=== PATIENT | female | born 1950 | race Caucasian/White ===

== ENCOUNTER 2019-10-30 12:29 | Day surgery (SDC) | payer OTHER, MEDICARE ==
--- NOTE | 2019-10-23 13:31 | HP ---
Admitting History and Physical - Primary Care Physician PCP: Messi Agarwal - Admission Chief Complaint: right breast cancer History of Present Illness: Patient is a 68 yo female who was noted to have suspicious masses right breast at 9 and 10. Patient underwent a bx on 08/31 which was c/w invasive lobular cancer at 9 (3 cm FN) and 10 (7 and 8 cm FN). MRI showed additional areas of suspicious enhancement bilaterally. The left 12 oclock area of enhancement was c/w PASH (09/28). The patient has opted to go forward with right breast mastectomy, snbx, poss andx with lympho and implant reconstruction. History Source: Patient Limitations to Obtaining History: No Limitations - Past Medical History Cardiovascular: Yes: HTN Heme/Onc: Yes: Other (Factor V Leiden def.) Home Medications - Allergies Allergies/Adverse Reactions: Allergies Allergy/AdvReac Type Severity Reaction Status Date / Time No Known Allergies Allergy Verified 10/23/19 13:33 - Home Medications Home Medications (free text): losartan. Hctz Family Medical History Family Hx Cancer: Mother (breast cancer dxed 80s) Review of Systems - Review of Systems Constitutional: reports: No Symptoms Cardiovascular: reports: No Symptoms Respiratory: reports: No Symptoms Physical Examination Constitutional: Yes: Well Nourished, Calm (Ptotic ful C-cup breasts with some bruising noted in the lateral aspect of the right breast . Scarring changes noted in the right breast at site of bx. No adenopathy noted bilaterally) Problem List - Problems (1) Breast cancer, right Code(s): C50.911 - MALIGNANT NEOPLASM OF UNSP SITE OF RIGHT FEMALE BREAST Qualifiers: Breast location: overlapping sites of breast Estrogen receptor status: positive Patient sex: female Qualified Code(s): C50.811 - Malignant neoplasm of overlapping sites of right female breast; Z17.0 - Estrogen receptor positive status [ER+] Assessment/Plan Plan: right mastectomy, snbx, poss andx, lympho and implant reconstruction
[2019-10-27 15:10] VITALS: BMI 24.1
--- OUTSIDE RECORDS SUMMARY | 2019-10-30 09:28 | XMS ---
:1950 [facility] Providers Name Role Phone Radiology, Referral Unavailable Unavailable Nicolás Golden Unavailable Unavailable Kale, J Unavailable Unavailable Yong, L Unavailable Unavailable Menell, H Unavailable Unavailable Yuval, A Unavailable Unavailable Madonna, H Unavailable Unavailable Madonna, H Unavailable Unavailable Madonna, H Unavailable Unavailable Madonna, H Unavailable Unavailable Madonna, H Unavailable Unavailable Madonna, H Unavailable Unavailable Madonna, H Unavailable Unavailable Madonna, H Unavailable Unavailable Madonna, H Unavailable Unavailable Madonna, H Unavailable Unavailable Madonna, H Unavailable Unavailable Madonna, H Unavailable Unavailable Madonna, H Unavailable Unavailable Madonna, H Unavailable Unavailable Madonna, H Unavailable Unavailable Madonna, H Unavailable Unavailable Madonna, H Unavailable Unavailable Rogalski, R Unavailable Unavailable Martines, E Unavailable Unavailable Clarick, J Unavailable Unavailable Saniya Taqueria Unavailable Unavailable Jhanwar, S Unavailable Unavailable Mizrachi Jonisch Unavailable Unavailable Olmstead, Ashlee Unavailable Unavailable Freedman, C Unavailable Unavailable Swan, E Unavailable Unavailable Re-disclosure Warning The records that you are about to access may contain information from federally- assisted alcohol or drug abuse programs. If such information is present, then the following federally mandated warning applies: This information has been disclosed to you from records protected by federal confidentiality rules (42 CFR part 2). The federal rules prohibit you from making any further disclosure of this information unless further disclosure is expressly permitted by the written consent of the person to whom it pertains or as otherwise permitted by 42 CFR part 2. A general authorization for the release of medical or other information is NOT sufficient for this purpose. The Federal rules restrict any use of the information to criminally investigate or prosecute any alcohol or drug abuse patient.The records that you are about to access may contain highly sensitive health information, the redisclosure of which is protected by Article 27-F of the [facility] Public Health law. If you continue you may haveaccess to information: Regarding HIV / AIDS; Provided by facilities licensed or operated by the [facility] Office of Mental Health; or Provided by the [facility] Office for People With Developmental Disabilities. If such information is present, then the following [facility] mandated warning applies: This information has been disclosed to you from confidential records which are protected by state law. State law prohibits you from making any further disclosure of this information without the specific written consent of the person to whom it pertains, or as otherwise permitted by law. Any unauthorized further disclosure in violation of state law may result in a fine or mcfp sentence or both. A general authorization for the release of medical or other information is NOT sufficient authorization for further disclosure. Allergies and Adverse Reactions Type Description Substance Reaction Status Data Source(s ) 3 No Known Allergies Clindamycin 150 MG Oral NEXTGEN ([facility] Tablet [Clintabs] [facility]) Encounters Encounter Providers Location Date Indications Data Source(s ) Outpatient Attender: Edward 10/28/2019 NEXTGEN ( [facility]onna 08:37:00 AM [facility]) Outpatient Attender: Edward 10/23/2019 NEXTGEN ( [facility] BhattReferrer: Edward 04:45:00 PM Med ica - [facility]) Outpatient Attender: Edward 10/22/2019 NEXTGEN ( [facility] Madonna 11:03:00 AM [facility]) Outpatient Attender: Referral 10/20/2019 NEXTGE N ([facility] 12:32:00 PM [facility]) Outpatient Attender: Nicolás 10/20/2019 NEXTGEN ([facility] KeatingReferrer: 12:29:00 PM [facility]) Outpatient Attender: Edward 10/20/2019 NEXTGEN ( [facility] Madonna 12:18:00 PM [facility]) Outpatient Attender: Rosario 10/14/2019 MARTHA N ([facility] Rogalski 03:09:00 PM Medical [facility] ) Outpatient Attender: Cathi 10/06/2019 NEXTGEN ([facility] GuptaReferrer: 11:40:00 AM Medical [facility] Cathi [place] ED Medical Gr[facility] p ) Outpatient Attender: Yaneli Horowitzi 09/29/2019 NEXT GEN ([facility] Taqueria 08:20:00 AM Medical [facility]) Outpatient Attender: Referral 09/26/2019 NEXTGE N ([facility] 02:56:00 PM Medical [facility]) Outpatient Attender: Referral 09/25/2019 NEXTGE N ([facility] 04:20:00 PM Medical [facility]) Outpatient Attender: Referral 09/25/2019 NEXTGE N ([facility] 03:44:00 PM Medical [facility]) Outpatient Attender: Marlyn 09/12/2019 NEXTGEN ([facility] FreedmanReferrer: 01:22:00 PM Medica l [facility] ) Outpatient Attender: 09/08/2019 NEXTGEN ([facility] Jhanwar 01:17:00 PM Medical [facility]) Outpatient Attender: Marlyn 09/04/2019 NEXTGEN ([facility] MartinmanReferrer: 02:30:00 PM Medica l [facility] Dewayne Henley [facility] Medical Delmy up ) Outpatient Attender: 09/01/2019 NEXTGEN ([facility] Jhanwar 11:41:00 AM Medical [facility] ) Outpatient Attender: Edward 09/01/2019 NEXTGEN ( [facility] Madonna 08:31:00 AM Medical [facility]) Outpatient Attender: Livier 09/01/2019 NEXTGE N ([facility] ChuReferrer: Thu 12:00:00 AM Medi [place] [facility] Jhanwar [facility]) Outpatient Attender: Edward 08/27/2019 NEXTGEN ( [facility] 05:33:00 PM [facility] [place] [facility]) Outpatient Attender: Arlyn 08/26/2019 NEXTGEN ([facility] Mizrachi 01:50:00 PM [facility] [place] JonischReferrer: [facility]) [facility] Outpatient Attender: Edward 08/22/2019 NEXTGEN ( [facility] [place] 08:29:00 AM [facility] [place] [facility]) Outpatient Attender: Cathi 07/22/2019 NEXTGEN ([facility] [place] 04:07:00 PM [facility] [place] [facility]) Outpatient Attender: Edward 07/22/2019 NEXTGEN ( [facility] Madonna 03:53:00 PM [facility] [place] [facility]) Outpatient Attender: Edward 07/04/2019 NEXTGEN ( [facility] Madonna 09:14:00 AM [facility] [place] [facility]) Outpatient Attender: Edward 07/01/2019 NEXTGEN ( [facility] BhattReferrer: Edward 12:15:00 PM Med ical - [place]) Outpatient Attender: Cathi 05/21/2019 NEXTGEN ([facility] [place] 11:57:00 AM [facility] [place] [facility]) Outpatient Attender: Cathi 03/05/2019 NEXTGEN ([facility] GuptaReferrer: 03:00:00 PM Medical [place] Cathi [place] EST [facility]) Outpatient Attender: Felice 02/24/2019 NEXTGEN ([facility] WaldReferrer: Deward 12:00:00 AM Med[place] Mad[facility]) Outpatient Attender: Edward 02/21/2019 NEXTGEN ( [facility] [place]onna 03:50:00 PM [facility] [place] [facility]) Outpatient Attender: Ana 02/21/2019 NEXTGEN ([facility] SantiagoReferrer: 12:00:00 AM Medica l - [place] Edward [facility]) Outpatient Attender: Edward 02/18/2019 NEXTGEN ( [facility] [place] 11:28:00 AM [facility] [place] [facility]) Outpatient Attender: Edward 02/14/2019 NEXTGEN ( [facility] [place] 07:04:00 PM [facility] [place] [facility]) Outpatient Attender: Cathi 02/10/2019 NEXTGEN ([facility] [place] 04:02:00 PM [facility] [place] [facility]) Outpatient Attender: Cathi 09/20/2018 NEXTGEN ([facility] [place] 08:55:00 AM [facility] [place] [facility]) Outpatient Attender: Megha 09/19/2018 NEXTGEN ( [facility] Martines 04:43:00 PM [facility] [place] [facility]) Outpatient Attender: Kenya 09/19/2018 NEXTGEN ([facility] ClarickReferrer: 04:30:00 PM Medical [place] Kenya Clarick [facility]) Outpatient Attender: Cathi 08/23/2018 NEXTGEN ([facility] GuptaReferrer: 05:00:00 PM Medical [place] Cathi [place] [facility]) Outpatient Attender: Cathi 08/21/2018 NEXTGEN ([facility] [place] 12:48:00 PM [facility] [place] [facility]) Outpatient Attender: Edward 08/20/2018 NEXTGEN ( [facility] Madonna 11:16:00 AM [facility] [place] [facility]) Outpatient Attender: Cathi 08/16/2018 NEXTGEN ([facility] GuptaReferrer: 04:00:00 PM Medical [place] Cathi [place] [facility]) Outpatient Attender: Edward 07/02/2018 NEXTGEN ( [facility] BhattReferrer: Edward 03:30:00 PM Med ical - [place] [facility]) Outpatient Attender: Megha 06/24/2018 NEXTGEN ( [facility] PaganReferrer: Edward 02:00:00 PM Med ical - [place] [facility]) Outpatient Attender: Edward 06/17/2018 NEXTGEN ( [facility] [place]onna 11:28:00 AM [facility] [place] [facility]) Outpatient Attender: Edward 06/13/2018 NEXTGEN ( [facility] Madonna 09:45:00 AM Medical [facility] ) Outpatient Attender: Edward 06/04/2018 NEXTGEN ( [facility] Madonna 10:39:00 AM Medical [facility] ) Outpatient Attender: Edward 06/03/2018 NEXTGEN ( [facility] Madonna 10:42:00 AM Medical [facility] ) Outpatient 05/30/2018 NEXTGEN ([facility] 11:02:00 AM Medical - [facility] ) Outpatient Attender: Megha 05/30/2018 NEXTGEN ( [facility] Martines 11:02:00 AM [facility]) Outpatient Attender: Margarita 05/28/2018 NEXTGE N ([facility] MenellReferrer: 12:00:00 AM [facility] ) Outpatient Attender: Edward 04/25/2018 NEXTGEN ( [facility] Madonna 04:51:00 PM Medical - [facility] ) Outpatient Attender: Edward 04/12/2018 NEXTGEN ( [facility] Madonna 09:55:00 AM Medical [facility] ) Medications Medication Brand Start Product Dose Route Administrative Pharmacy [facility] Indications Reaction Description Data Name Date Form Instructions Instructions Source(s) coenzyme COQ-10 RP NEXTGEN Q10 30 MG ([facility] Oral Medical - Capsule 30 [place] mg 30 mg Medical Group ) This may be an active medication. No end date is available. Start date above may not reflect actual date the medication was s tarted. 1,300 mg-845 mg-117 mg-117 mg RP NEXTGEN ([facility] Medical - [place] 1,300 mg-845 mg-117 mg-117 mg [facility] ) This may be an active medication. No end date is available. Start date above may not reflect actual date the medication was s tarted. Vitamin E 100 UNT Oral VITAMIN E RP NEXTGEN ([facility] Medical - Capsule 100 unit 100 unit [facility] ) This may be an active medication. No end date is available. Start date above may not reflect actual date the medication was s tarted. 600 mg 600 mg RP NEXTGE N ([facility]) This may be an active medication. No end date is available. Start date above may not reflect actual date the medication was s tarted. 200 mcg 200 mcg RP NEXT GEN ([facility]) This may be an active medication. No end date is available. Start date above may not reflect actual date the medication was s tarted. 100 mcg (4,000 unit) 3400 mg daily RP NEXTGEN ([facility] Medical 100 mcg (4,000 unit) - [facility]) This may be an active medication. No end date is available. Start date above may not reflect actual date the medication was s tarted. 200 mg 200 mg 2 tabs daily RP NEXTGEN ([facility]) This may be an active medication. No end date is available. Start date above may not reflect actual date the medication was s tarted. Garlic preparation 300 MG ODORLESS GARLIC RP NEXTGEN ([facility] Oral Capsule 300 mg 300 Medical [facility]) This may be an active medication. No end date is available. Start date above may not reflect actual date the medication was s tarted. "" "" RP NEXTGEN ([facility] - [facility]) This may be an active medication. No end date is available. Start date above may not reflect actual date the medication was s tarted. "" "" take 1 capsule by oral route RP NEXTGEN ([facility] - every day [facility]) This may be an active medication. No end date is available. Start date above may not reflect actual date the medication was s tarted. 500 mg calcium (1,250 2000 mg daily RP NEXTGEN ([facility] mg) 500 mg calcium - [facility] (1,250 mg) ) This may be an active medication. No end date is available. Start date above may not reflect actual date the medication was s tarted. Alendronic ALENDRONATE 10/06/2019 take 1 tablet RP NEXTGEN acid 70 MG SODIUM 12:00:00 AM by oral route ([facility] 70 EDT every week Medical - [place] mg 70 mg in the [place] Med ical morning, at Group ) least 30 min before first food, beverage, or medication of day This may be an active medication. No end date is available. Losartan LOSARTAN 07/22/2019 take 1 RP NEXTGEN Potassium 50 POTASSIUM 12:00:00 AM EDT tablet by ([facility] MG Oral Tablet oral route Medical - [place] 50 mg 50 mg every day s [place] Medical Group ) This may be an active medication. No end date is available. Hydrochlorothiazide HYDROCHLOROTHIAZIDE 07/22/2019 take 1 RP NEXTGEN 12.5 MG Oral Tablet 12:00:00 AM tablet ([facility] 12.5 mg 12.5 mg EDT by oral M edical - [facility] ) This may be an active medication. No end date is available. Alendronic ALENDRONATE 07/22/2019 take 1 tablet RP NEXTGEN acid 70 MG SODIUM 12:00:00 AM by oral route ([facility] Oral Tablet 70 EDT every week Medical - [place] mg 70 mg in the [place] Med ical morning, at Group ) least 30 min before first food, beverage, or medication of day This may be an active medication. No end date is available. Alendronic ALENDRONATE 03/05/2019 take 1 tablet RP NEXTGEN acid 70 MG SODIUM 12:00:00 AM by oral route ([facility] Oral Tablet 70 EST every week Medical - [place] mg 70 mg in the [place] Med ical morning, at Group ) least 30 min before first food, beverage, or medication of day This may be an active medication. No end date is available. Hydrochlorothiazide HYDROCHLOROTHIAZIDE 02/18/2019 take 1 RP NEXTGEN 12.5 MG Oral Tablet 12:00:00 AM tablet ([facility] 12.5 mg 12.5 mg EST by oral M edical - route [facility] day Group ) This may be an active medication. No end date is available. Losartan LOSARTAN 02/18/2019 take 1 RP NEXTGEN Potassium 50 POTASSIUM 12:00:00 AM EST tablet by ([facility] MG Oral Tablet oral route Medical - [place] 50 mg 50 mg every day s [place] [facility] Group ) This may be an active medication. No end date is available. Insurance Providers Payer name Policy type Policy ID Covered Covered constitution party's Policy P sri / Coverage constitution party ID relationship to [place] Inf ormation type boothe MDCR Medicare [id number] 1 [id number] Part B Par Providers [facility] [id number] [id number] SP [id number] CARE OPTIONS MEDICARE [id number] SP [id number] [facility] [id number] SP [id number] CARE OPTIONS MEDICARE [id number] SP [id number] G63 [facility] [place] [id number] 1 [id number] Part B Par Providers Problems, Conditions, and Diagnoses Code Display Name Description Problem Type Effective Data Dates Source(s) I10 Essential Essential Diagnosis 10/23/2019 NEXTGEN (primary) (primary) 04:45:00 PM ([facility] hypertension hypertension EDT [facility]) 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 XTGEN C resistance mutation, 04:45:00 PM ([facility] heterozygous EDT [facility]) C50.911 Malignant neoplasm Malignant neoplasm Diagnosis 0 NEXTGEN of unspecified of right female 04:45:00 PM ([facility] site of right breast, EDT Medical - t female breast unspecified [facility] estrogen receptor Group P C) status, unspecified site of breast T88.8xxA Other specified Complication med Diagnosis 10/20/2019 NEX TGEN complications of care NEC/NOS 12:32:00 PM ([facility] surgical and EDT Medical [facility] medical care, not [place] M edical elsewhere Group PC) classified, initial encounter Z01.818 Encounter for Encounter for Diagnosis 10/20/2019 NEXTGEN other other 12:29:00 PM ([facility]ural preprocedural EDT Medical [facility] examination examination [facility]) M81.0 Age-related Age-related Diagnosis 10/06/2019 NEXTGEN osteoporosis osteoporosis w/o 11:40:00 AM ([facility] without current current EDT Medical [facility] pathological pathological [facility] fracture fracture Group PC) D48.62 Neoplasm of Neoplasm of Diagnosis 09/29/2019 NEXTGEN uncertain behavior uncertain behavior 08:20:00 AM ([facility] of left breast of left breast EDT Medica l - [facility]) N63.0 Unspecified lump Breast mass Diagnosis 09/25/2019 NEXTGEN in unspecified 04:20:00 PM ([facility] breast [facility]) R92.8 Other abnormal and Oth abn and Diagnosis 09/12/2019 NEXTG EN inconclusive inconclusive 01:22:00 PM ([facility] findings on findings on dx EDT Medical [facility] diagnostic imaging imaging of breast [facility] of breast Group PC) C50.411 Malignant neoplasm Malig neoplm of Diagnosis 09/12/2019 N EXTGEN of upper-outer upper-outer 01:22:00 PM ([facility] quadrant of right quadrant of right EDT Medical - [place] female breast female breast [facility] dical Group PC) L82.1 Other seborrheic Seborrheic Diagnosis 08/26/2019 NEXTGEN keratosis keratosis 01:50:00 PM ([facility]) D22.5 Melanocytic nevi Melanocytic nevi Diagnosis 08/26/2019 NE XTGEN of trunk of trunk 01:50:00 PM ([facility]) Z12.31 Encounter for Encounter for Diagnosis 08/22/2019 NEXTGEN screening screening 08:29:00 AM ([facility] mammogram for mammogram for EDT Medical [facility] malignant neoplasm malignant neoplasm [facility] of breast of breast Group PC) Z12.11 Encounter for Screen for colon Diagnosis 07/01/2019 NEXTG EN screening for cancer 12:15:00 PM ([facility] malignant neoplasm EDT Medica l - [place] of colon [facility]) M81.8 Other osteoporosis Other osteoporosis Diagnosis 0 NEXTGEN without current without current 12:15:00 PM ([facility] pathological pathological EDT [facility] fracture fracture [facility]) Z00.00 Encounter for Routine general Diagnosis 07/01/2019 NEXTGE N general adult medical 12:15:00 PM ([facility] medical examination at a EDT Medical [facility] examination health care [place] Medica l without abnormal facility Group PC ) findings N64.9 Disorder of Disorder of Diagnosis 02/24/2019 NEXTGEN breast, breast, 12:00:00 AM ([facility] unspecified unspecified [facility]) 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 02:00:00 PM ([facility] other clotting EDT [facility] factors [facility]) E55.9 Vitamin D Vitamin D Diagnosis 06/24/2018 NEXTGEN deficiency, deficiency 02:00:00 PM ([facility] unspecified T [facility]) R92.2 Inconclusive Dense breast Diagnosis 06/24/2018 NEXTGEN mammogram tissue 02:00:00 PM ([facility]) Z13.820 Encounter for Encounter for Diagnosis 05/28/2018 NEXTGEN screening for screening for 12:00:00 AM ([facility] osteoporosis osteoporosis [facility]) Surgeries/Procedures Procedure Description Date Indications Data Source(s) OFFICE/OUTPATIENT VISIT OFFICE/OUTPATIENT VISIT 10/23/2019 NEXTGEN EST EST 12:00:00 ([facility] AM [facility]) ELECTROCARDIOGRAM ELECTROCARDIOGRAM 10/20/2019 NEXTG EN COMPLETE COMPLETE 12:00:00 ([facility] AM [facility]) OFFICE/OUTPATIENT VISIT OFFICE/OUTPATIENT VISIT 10/06/2019 NEXTGEN EST EST 12:00:00 ([facility]) PHYSICIAN TELEPHONE PHONE E/M PHYS/QHP -09/12/2019 NEXTGEN EVALUATION 21-30 MIN MIN 12:00:00 ([facility] AM [facility]) Annual wellness visit, Ppps, subseq visit 07/01/2019 NEXTGEN includes a personalized 12:00:00 ([facility] prevention plan of [facility] service (pps), [facility] visit Group ) ULTRASOUND BREAST ULTRASOUND BREAST 02/24/2019 NEXTG EN LIMITED LIMITED 12:00:00 ([facility] AM [facility]) BREAST TOMOSYNTHESIS UNI BREAST TOMOSYNTHESIS UNI 02/21/2019 NEXTGEN 12:00:00 ([facility]) DX MAMMO INCL CAD UNI DX MAMMO INCL CAD UNI 02/21/2019 NEXTGEN 12:00:00 ([facility]) HZV VACC RECOMBINANT IM HZV VACC RECOMBINANT IM 09/19/2018 NEXTGEN 12:00:00 ([facility]) IMMUNIZATION ADMIN IMMUNIZATION ADMIN 09/19/2018 NEX TGEN 12:00:00 ([facility]) OFFICE/OUTPATIENT VISIT OFFICE/OUTPATIENT VISIT 08/16/2018 NEXTGEN NEW NEW 12:00:00 ([facility]) Results ID Date Data Source [id number] 10/27/2019 01:17:00 PM EDT [facility] Name Value Range Interpretation Description Data Sup porting Code Source(s) Document(s ) SARS [facility] coronavirus 2 RNA This lab was ordered by CELESTINA gutierrez [facility] and reported by [facility] Procedure
[~2019-10-30 12:29] MED LIST: ACETAMINOPHEN INJECTION 100 ML IVPB ONE; BUPIVACAINE HCL/PF 0.5% (5 MG/ML) 30 ML VIAL IJ ONE; BUPIVACAINE LIPOSOME/PF (EXPAREL) 266 MG/20 ML VIAL ONE; DEXAMETHASONE SOD PHOSPHATE 4 MG/1 ML VIAL ONE; HEPARIN NA (PORCINE) 5,000 UNITS/ML 1ML VIAL ONE; HYDROmorphone HCL CARPU-JECT 1 MG/1 ML DISP.SYRIN IVPUSH PRN; LIDOCAINE HCL/PF 2% SDV 5ML VIAL ONE; MIDAZOLAM HCL 2 MG/2 ML SINGLE DOSE VIAL ONE; ONDANSETRON 4 MG/2 ML VIAL IVPUSH PRN; ONDANSETRON 4 MG/2 ML VIAL ONE; PROPOFOL 20 ML ONE; ROCURONIUM BROMIDE 50 MG/5 ML SYRINGE ONE; SODIUM CHLORIDE 0.9% P/F 10 ML VIAL IJ ONE; ZOLPIDEM TARTRATE 5 MG TABLET PO PRN; ceFAZolin SODIUM 1 GM VIAL ONE; oxyCODONE HCL 5 MG TABLET PO PRN
[2019-10-30] MEDS ORDERED: DEXTROSE 5%-0.45% SALINE 1,000 ML IV SCH (12:30)
[2019-10-30] MEDS ORDERED: GLYCOPYRROLATE 0.2 MG/1 ML VIAL ONE (12:47)
[2019-10-30] MEDS ORDERED: NEOSTIGMINE METHYLSULFATE 0.5 MG/ML - 10 ML MDV ONE (12:47)
[2019-10-30] MEDS ORDERED: PROPOFOL 20 ML ONE (12:59)
[2019-10-30] MEDS ORDERED: MIDAZOLAM HCL 2 MG/2 ML SINGLE DOSE VIAL ONE (13:01)
--- OUTSIDE RECORDS SUMMARY | 2019-10-30 15:45 | XMS ---
:1950 Author Organization [facility] Care Team Providers Name Role Phone Radiology, Referral Unavailable Unavailable Nicolás Golden Unavailable Unavailable Kale, J Unavailable Unavailable Yong, L Unavailable Unavailable Menell, H Unavailable Unavailable Uyval, A Unavailable Unavailable Madonna, H Unavailable Unavailable [...] is protected by Article 27-F of the [facility] Public Health law. If you continue you may haveaccess to information: Regarding HIV / AIDS; Provided by facilities licensed or operated by the [facility] Office of Mental Health; or Provided by the [facility] Office for People With Developmental Disabilities. If such information is present, then the following [facility] mandated warning applies: This information has [...] law may result in a fine or intermediate sentence or both. A general authorization for the release of medical or other information is NOT sufficient authorization for further disclosure. Allergies and Adverse Reactions Type Description Substance Reaction Status Data Source(s ) 3 No Known Allergies Clindamycin 150 MG Oral NEXTGEN ([facility] Tablet [Clintabs] [facility]) Encounters Encounter Providers Location Date Indications Data Source(s ) Outpatient Attender: Edward 10/28/2019 NEXTGEN ( [facility] [place]onna 08:37:00 AM [facility]) Outpatient Attender: Edward 10/23/2019 NEXTGEN ( [facility] BhattReferrer: Edward [facility]45[facility] Out[facility] Attender: Edward 10/22/2019 NEXTGEN ( [facility] Madonna 11:03:00 AM [facility]) Outpatient Attender: Referral 10/20/2019 SANTOGE N ([facility] 12:32:00 PM [facility]) Outpatient Attender: Nicolás 10/20/2019 NEXTGEN ([facility] KeatingReferrer: 12:29:00 PM [facility]) Outpatient Attender: Edward 10/20/2019 NEXTGEN ( [facility] Madonna 12:18:00 PM [facility]) Outpatient Attender: Rosario 10/14/2019 NEXTGE N ([facility] Rogalski 03:09:00 PM [facility] Medical [facility]) Outpatient Attender: Cathi 10/06/2019 NEXTGEN ([facility] GuptaReferrer: 11:40:00 AM Medical [facility] [place] [facility] Outpatient Attender: Yaneli Saniya 09/29/2019 NEXT GEN ([facility] Taqueria 08:20:00 AM Medical [facility] Medical [facility]) Outpatient Attender: Referral 09/26/2019 NEXTGE N ([facility] 02:56:00 PM [facility]) Outpatient Attender: Referral 09/25/2019 NEXTGE N ([facility] 04:20:00 PM [facility] Medical [facility]) Outpatient Attender: Referral 09/25/2019 NEXTGE N ([facility] 03:44:00 PM [facility] Medical [facility]) Outpatient Attender: Marlyn 09/12/2019 NEXTGEN ([facility] FreedmanReferrer: 01:22:00 PM [facility] Ardon [facility] Medical Delmy up ) Outpatient Attender: 09/08/2019 NEXTGEN ([facility] Jhanwar 01:17:00 PM [facility] Medical [facility]) Outpatient Attender: Marlyn 09/04/2019 NEXTGEN ([facility] FreedmanReferrer: 02:30:00 PM [facility] Henley [facility] Medical Delmy up ) Outpatient Attender: 09/01/2019 NEXTGEN ([facility] Jhanwar 11:41:00 AM Medical [facility] Medical [facility]) Outpatient Attender: Edward 09/01/2019 NEXTGEN ( [facility] Madonna 08:31:00 AM Medical [facility] Medical [facility]) Outpatient Attender: Livier 09/01/2019 NEXTGE N ([facility] ChuReferrer: Htu 12:00:00 AM Med[facility] Medical Group ) Outpatient Attender: Edward 08/27/2019 NEXTGEN ( [facility] [place] 05:33:00 PM [facility] [place] [facility] Outpatient Attender: Arlyn 08/26/2019 NEXTGEN ([facility] Mizrachi 01:50:00 PM [facility] [place] [facility] Jonisch[facility]errer: EDT [facility] ) [facility] Outpatient Attender: Edward 08/22/2019 NEXTGEN ( [facility] [place] 08:29:00 AM [facility] [place] [facility] ) Outpatient Attender: Cathi 07/22/2019 NEXTGEN ([facility] [place] 04:07:00 PM Medical [facility] Group ) Outpatient Attender: Edward 07/22/2019 NEXTGEN ( [facility] Madonna 03:53:00 PM Medical [facility] Medical Group ) Outpatient Attender: Edward 07/04/2019 NEXTGEN ( [facility] [place]onna 09:14:00 AM Medical [facility] Group ) Outpatient Attender: Edward 07/01/2019 NEXTGEN ( [facility] BhattReferrer: Edward 12:15:00 PM [facility] Mad[facility] Medical Group ) Outpatient Attender: Cathi 05/21/2019 NEXTGEN ([facility] [place] 11:57:00 AM [facility] ) Outpatient Attender: Cathi 03/05/2019 NEXTGEN ([facility] GuptaReferrer: 03:00:00 PM Medical [facility] Cathi [place] EST Medical Gro p ) Outpatient Attender: Felice 02/24/2019 NEXTGEN ([facility] WaldReferrer: Edward 12:00:00 AM Medi [place] [facility]) Outpatient Attender: Edward 02/21/2019 NEXTGEN ( [facility] [place] 03:50:00 PM [facility] [place] [facility] ) Outpatient Attender: Ana 02/21/2019 NEXTGEN ([facility] SantiagoReferrer: 12:00:00 AM Medica l [facility] Edward Madonna EST [facility]) Outpatient Attender: Edward 02/18/2019 NEXTGEN ( [facility] [place] 11:28:00 AM [place] EST Medical Group [...] 04:00:00 PM [place] Cathi Ol[place] EDT Medical Grou p PC) Outpatient Attender: Edward 07/02/2018 NEXTGEN ( [facility] BhattReferrer: Edward 03:30:00 PM Med ical [place] [facility]) Outpatient Attender: Megha 06/24/2018 NEXTGEN ( [facility] PaganReferrer: Edward 02:00:00 PM Med [place] [facility]) Outpatient Attender: Edward 06/17/2018 NEXTGEN ( [facility] [place] 11:28:00 AM Medical [facility] ED Medical Group ) Outpatient Attender: Edward 06/13/2018 NEXTGEN ( [facility] [place] 09:45:00 AM [facility] ) Outpatient Attender: Edward 06/04/2018 NEXTGEN ( [facility] [place] 10:39:00 AM Medical [facility] Group ) Outpatient Attender: Edward 06/03/2018 NEXTGEN ( [facility] [place] 10:42:00 AM Medical - [facility] Medical Group ) Outpatient 05/30/2018 NEXTGEN (Carem ount 11:02:00 AM Medical [facility] Medical [facility]) Outpatient Attender: Megha 05/30/2018 NEXTGEN ( [facility] Martines 11:02:00 AM Medical [facility] Medical Group ) Outpatient Attender: Margarita 05/28/2018 MARTHA N ([facility] MenellReferrer: 12:00:00 AM Medical [facility] ) Outpatient Attender: Edward 04/25/2018 NEXTGEN ( [facility] Madonna 04:51:00 PM Medical - [facility] ) Outpatient Attender: Edward 04/12/2018 NEXTGEN ( [facility] [place]onna 09:55:00 AM Medical [facility] Medical Group ) Medications Medication Brand Start Product Dose Route Administrative Pharmacy at Indications Reaction Description Data Name Date Form [...] - Mt 1,300 mg-845 mg-117 mg-117 mg [facility] ) This may be an active medication. No end date is available. Start date above may not reflect actual date the medication was s tarted. Vitamin E 100 UNT Oral VITAMIN E RP NEXTGEN ([facility] - Capsule 100 unit 100 unit [facility]) This may be an active medication. No end date is available. Start date above may not reflect actual date the medication was s tarted. 600 mg 600 mg RP NEXTGE N ([facility] Medical [facility]) This may be an active medication. No end date is available. Start date above may not reflect actual date the medication was s tarted. 200 mcg 200 mcg RP NEXT GEN [facility]) This may be an active medication. No end date is available. Start date above may not reflect actual date the medication was s tarted. 100 mcg (4,000 unit) 3400 mg daily RP NEXTGEN ([facility] 100 mcg (4,000 unit) - [facility]) This may be an active medication. No end date is available. Start date above may not reflect actual date the medication was s tarted. 200 mg 200 mg 2 tabs daily RP NEXTGEN ([facility]) This may be an active medication. No end date is available. Start date above may not reflect actual date the medication was s tarted. Garlic preparation 300 MG ODORLESS GARLIC RP NEXTGEN ([facility] Oral Capsule 300 mg 300 Medical - [facility]) This may be an active medication. No end date is available. Start date above may not reflect actual date the medication was s tarted. "" "" RP NEXTGEN ([facility] Medical - [facility]) This may be an active medication. No end date is available. Start date above may not reflect actual date the medication was s tarted. "" "" take 1 capsule by oral route RP NEXTGEN ([facility] - every day [facility]) This may be an active medication. No end date is available. Start date above may not reflect actual date the medication was s tarted. 500 mg calcium (1,250 2000 mg daily RP NEXTGEN ([facility] mg) 500 [address] - [facility] (1,250 mg) ) This may be an active medication. No end date is available. Start date above may not reflect actual date the medication was s tarted. Alendronic ALENDRONATE 10/06/2019 take 1 tablet RP NEXTGEN acid 70 MG SODIUM 12:00:00 AM by oral route ([facility] Oral Tablet 70 EDT every week Medical - [place] mg 70 mg in the [place] Med ica morning, at Group ) least 30 min before first food, beverage, or medication of day This may be an active medication. No end date is available. Losartan LOSARTAN 07/22/2019 take 1 RP NEXTGEN Potassium 50 POTASSIUM 12:00:00 AM EDT tablet by ([facility] MG Oral Tablet oral route Medical - Mt 50 mg 50 mg every day [facility] Group ) This may be an active medication. No end date is available. Hydrochlorothiazide HYDROCHLOROTHIAZIDE 07/22/2019 take 1 RP NEXTGEN 12.5 MG Oral Tablet 12:00:00 AM tablet ([facility] 12.5 mg 12.5 mg EDT by oral M edical - route [place] [facility] every Medical day Group ) This may be an active medication. No end date is available. Alendronic ALENDRONATE 07/22/2019 take 1 tablet RP NEXTGEN acid 70 MG SODIUM 12:00:00 AM by oral route ([facility] Oral Tablet 70 EDT every week Medical - Mt mg 70 mg in the sco Med ica morning, at Group ) least 30 min before first food, beverage, or medication of day This may be an active medication. No end date is available. Alendronic ALENDRONATE 03/05/2019 take 1 tablet RP NEXTGEN acid 70 MG SODIUM 12:00:00 AM by oral route ([facility] Oral Tablet 70 EST every week Medical - [place] mg 70 mg in the [facility] morning, at Group ) least 30 min before first food, beverage, or medication of day This may be an active medication. No end date is available. Hydrochlorothiazide HYDROCHLOROTHIAZIDE 02/18/2019 take 1 RP NEXTGEN 12.5 MG Oral Tablet 12:00:00 AM tablet ([facility] 12.5 mg 12.5 mg EST by oral M edical - route [facility] every Medical day Group ) This may be an active medication. No end date is available. Losartan LOSARTAN 02/18/2019 take 1 RP NEXTGEN Potassium 50 POTASSIUM 12:00:00 AM EST tablet by ([facility] MG Oral Tablet oral route Medical - Mt 50 mg 50 mg every day [facility] PC) This may be an active medication. No end date is available. Insurance Providers Payer name Policy type Policy ID Covered Covered constitution party's Policy P sri / Coverage constitution party ID relationship to [employer] Inf ormation type boothe [facility] [id number] SP [id number] CARE OPTIONS MEDICARE [id number] SP [id number] MDCR Medicare [id number] 1 [id number] Part B Par Providers [facility] [id number] [facility] [id number] SP [id number] CARE OPTIONS MEDICARE [id number] SP [id number] MDCR Medicare [id number] 1 [id number] Part B Par Providers Problems, Conditions, and Diagnoses Code Display Name Description Problem Type Effective Data Dates Source(s) I10 Essential Essential Diagnosis 10/23/2019 NEXTGEN (primary) (primary) 04:45:00 PM ([facility] hypertension hypertension EDT Medical [facility] 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 XTGEN C resistance mutation, 04:45:00 PM ([facility] heterozygous EDT [facility]) C50.911 Malignant neoplasm Malignant neoplasm Diagnosis 0 NEXTGEN of unspecified of right female 04:45:00 PM ([facility] site of right breast, EDT Medical - t female breast unspecified [facility] estrogen receptor Group P C) status, unspecified site of breast T88.8xxA Other specified Complication med Diagnosis 10/20/2019 NEX TGEN complications of care NEC/NOS 12:32:00 PM (Care [facility] surgical and EDT Medical [facility] medical care, not [place] M edical elsewhere Group PC) classified, initial encounter Z01.818 Encounter for Encounter for Diagnosis 10/20/2019 NEXTGEN other other 12:29:00 PM ([facility] preprocedural preprocedural EDT Medical [facility] examination examination [facility]) M81.0 Age-related Age-related Diagnosis 10/06/2019 NEXTGEN osteoporosis osteoporosis w/o 11:40:00 AM ([facility] without current current EDT Medical - [place] pathological pathological [facility] fracture fracture Group PC) D48.62 Neoplasm of Neoplasm of Diagnosis 09/29/2019 NEXTGEN uncertain behavior uncertain behavior 08:20:00 AM ([facility] of left breast of left breast EDT Medica l [facility]) N63.0 Unspecified lump Breast mass Diagnosis 09/25/2019 NEXTGEN in unspecified 04:20:00 PM ([facility] breast EDT Medical [facility]) R92.8 Other abnormal and Oth abn and Diagnosis 09/12/2019 NEXTG EN inconclusive inconclusive 01:22:00 PM ([facility] findings on findings on dx EDT Medical - [place] diagnostic imaging imaging of breast [facility] of breast Group PC) C50.411 Malignant neoplasm Malig neoplm of Diagnosis 09/12/2019 N EXTGEN of upper-outer upper-outer 01:22:00 PM ([facility] quadrant of right quadrant of right EDT Medical - [place] female breast female breast [facility] dical Group PC) L82.1 Other seborrheic Seborrheic Diagnosis 08/26/2019 NEXTGEN keratosis keratosis 01:50:00 PM ([facility] EDT Medical - [facility] PC) D22.5 Melanocytic nevi Melanocytic nevi Diagnosis 08/26/2019 NE XTGEN of trunk of trunk 01:50:00 PM ([facility] EDT Medical [facility] PC) Z12.31 Encounter for Encounter for Diagnosis 08/22/2019 NEXTGEN screening screening 08:29:00 AM ([facility] mammogram for mammogram for EDT Medical - [place] malignant neoplasm malignant neoplasm [facility] of breast of breast Group PC) Z12.11 Encounter for Screen for colon Diagnosis 07/01/2019 NEXTG EN screening for cancer 12:15:00 PM ([facility] malignant neoplasm EDT Medica l - [place] of colon [facility]) M81.8 Other osteoporosis Other osteoporosis Diagnosis 0 NEXTGEN without current without current 12:15:00 PM ([facility] pathological pathological EDT Medical - [place] fracture fracture [facility] PC) Z00.00 Encounter for Routine general Diagnosis 07/01/2019 NEXTGE N general adult medical 12:15:00 PM ([facility] medical examination at a [facility] without abnormal facility Group ) findings N64.9 Disorder of Disorder of Diagnosis 02/24/2019 NEXTGEN breast, breast, 12:00:00 AM ([facility] unspecified unspecified [facility]) 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 02:00:00 PM ([facility] other clotting [facility] factors [facility]) E55.9 Vitamin D Vitamin D Diagnosis 06/24/2018 NEXTGEN deficiency, deficiency 02:00:00 PM ([facility] unspecified [facility]) R92.2 Inconclusive Dense breast Diagnosis 06/24/2018 NEXTGEN mammogram tissue 02:00:00 PM ([facility]) Z13.820 Encounter for Encounter for Diagnosis 05/28/2018 NEXTGEN screening for screening for 12:00:00 AM ([facility] osteoporosis osteoporosis [facility]) Surgeries/Procedures Procedure Description Date Indications Data Source(s) OFFICE/OUTPATIENT VISIT OFFICE/OUTPATIENT VISIT 10/23/2019 NEXTGEN EST EST 12:00:00 ([facility]) ELECTROCARDIOGRAM ELECTROCARDIOGRAM 10/20/2019 NEXTG EN COMPLETE COMPLETE 12:00:00 ([facility] AM [facility]) OFFICE/OUTPATIENT VISIT OFFICE/OUTPATIENT VISIT 10/06/2019 NEXTGEN EST EST 12:00:00 ([facility] AM [facility]) PHYSICIAN TELEPHONE PHONE E/M PHYS/QHP -09/12/2019 NEXTGEN EVALUATION 21-30 MIN MIN 12:00:00 ([facility]) Annual wellness visit, Ppps, subseq visit 07/01/2019 NEXTGEN includes a personalized 12:00:00 ([facility] prevention plan of AM [facility] service (pps), [facility] subsequent visit Group PC) ULTRASOUND BREAST ULTRASOUND BREAST 02/24/2019 NEXTG EN LIMITED LIMITED 12:00:00 ([facility]) BREAST TOMOSYNTHESIS UNI BREAST TOMOSYNTHESIS UNI 02/21/2019 NEXTGEN 12:00:00 ([facility]) DX MAMMO INCL CAD UNI DX MAMMO INCL CAD UNI 02/21/2019 NEXTGEN 12:00:00 ([facility]) HZV VACC RECOMBINANT IM HZV VACC RECOMBINANT IM 09/19/2018 NEXTGEN 12:00:00 ([facility]) IMMUNIZATION ADMIN IMMUNIZATION ADMIN 09/19/2018 NEX TGEN 12:00:00 ([facility]) OFFICE/OUTPATIENT VISIT OFFICE/OUTPATIENT VISIT 08/16/2018 NEXTGEN NEW NEW 12:00:00 ([facility]) Results ID Date Data Source [id number] 10/27/2019 01:17:00 PM EDT [facility] Name Value Range Interpretation Description Data Sup porting Code Source(s) Document(s ) SARS [facility] coronavirus 2 RNA This lab was ordered by CELESTINA gutierrez [facility] and reported by [facility]. Procedure
[2019-10-30] MEDS: CEFAZOLIN 1 GM/D5W 1 GM/50 ML BAG IVPB SCH ×2 (15:53→21:03)
[2019-10-31] MEDS: CEFAZOLIN 1 GM/D5W 1 GM/50 ML BAG IVPB SCH ×2 (02:15→09:14)
[2019-10-31] MEDS: ACETAMINOPHEN 325 MG TABLET (FP) PO PRN ×2 (06:00→13:19)
[2019-10-31] MEDS: LACTATED RINGERS SOLUTION 1,000 ML IV SCH ×2 (07:56→09:15)
[2019-10-31 08:46] LABS: HEMATOCRIT 33.2 % (32.4-45.2); HEMOGLOBIN 11.5 GM/dl (10.7-15.3); MCH 32.7 pg (25.7-33.7); MCHC 34.6 g/dl (32.0-36.0); MEAN CELL VOLUME 94.5 fl (80-96); PLATELET COUNT 219 K/MM3 (134-434); RBC 3.51 M/mm3 (3.60-5.2); RDW 12.5 % (11.6-15.6); WHITE BLOOD COUNT 9.2 K/mm3 (4.0-10.8)
[2019-10-31 09:29] VITALS: BP 127/61; PULSE 67; TEMP 97.5
[2019-10-31] MEDS ORDERED: HEPARIN NA (PORCINE) 5,000 UNITS/ML 1ML VIAL SQ SCH (10:00)
--- NOTE | 2019-10-31 19:05 | OP ---
DATE OF OPERATION: 10/30/2019 PREOPERATIVE DIAGNOSIS: Multifocal right breast cancer. POSTOPERATIVE DIAGNOSIS: Multifocal right breast cancer. PROCEDURE: Right breast total mastectomy with right axillary sentinel lymph node biopsy and subpectoral implant reconstruction. ANESTHESIA: General endotracheal anesthesia. PRIMARY SURGEON: Francesca Agarwal MD. RESEARCH ADMINISTRATOR: ELMER Ann. Primary surgeon for the direct implant reconstruction with acellular dermal matrix is Francesca Herrera MD. COMPLICATIONS: There were no complications. DESCRIPTION OF PROCEDURE: Briefly, the patient is a 68-year-old G4, P2 postmenopausal white female with a family history of her mother had breast cancer in her 80s. The patient is found to have some densities in the right breast upper out quadrant on screening mammography ultrasound in August 2019 and underwent ultrasound guided biopsies for 3 densities in the right breast 9 and 10 o'clock regions which all came back with classical-type invasive lobular cancer which was ER/ME positive, HER2/nelsy negative. MRI showed some other focuses in the posterolateral aspect of the right breast as well as an area in the left breast. The left breast was biopsied under MRI guidance and came back negative. The patient was advised at undergoing a right breast mastectomy given the multifocal nature of this breast cancer. She was seen by Dr. Herrera preoperatively, and decision was made to perform implant reconstruction at the time of mastectomy. Due to her breast size and shape, removal of the nipple was required. The patient was brought in for the procedure on October 30, 2019. She first underwent lymphoscintigraphy with a periareolar subdermal injection of technetium 99 at [facility] and was brought to the [place] holding area. In the holding area, site verification was made, and informed consent was obtained. She underwent preoperative COVID testing which was negative. She was marked preoperatively by the plastic surgeon. She was brought into the operating room and laid on the OR table in a supine position. Venodynes were placed on the lower extremities prior to induction. She received 2 g of Ancef prior to incision. She underwent general endotracheal anesthesia. Both breasts were sterilely prepped and draped in usual fashion. 3 mL of Lymphazurin blue were injected intradermally around the right breast periareolar region and massage was instituted. The right breast axillary sentinel lymph node biopsy was first performed. Incision was made just below the hair-bearing area of the right axilla, and dissection was undertaken, and blue lymphatics were easily seen coursing through 3 blue hot lymph nodes. The 1st sentinel lymph node in the level 1 region had a 10-second gamma count of 6652. The 2nd sentinel node in the level 1 region had a 10-second gamma count of 3737. The 3rd sentinel node in the level 2 region was also blue and had a 10-second gamma count of 3860. There was also a non-sentinel lymph node removed. The 3 sentinel lymph nodes were sent down to pathology for frozen section came back negative, so no further nodes were removed. The non-sentinel lymph node was sent down to pathology in formalin for permanent section. Background counts after removal of these nodes was 464. No other blue or hot nodes were found. Hemostasis was achieved. At this point, a mastectomy was performed, removing the entire right breast nipple-areolar complex and most of the lower pole of the right breast with the incision marked out by plastic surgery preoperatively. Skin flaps were raised superiorly to the level of the clavicle, medially to the level of the sternum, laterally to the level of the latissimus, and inferiorly below the level of the inframammary fold. The breast was taken out off the pectoralis major muscle from medial to lateral, completely removed intact. It was oriented with a long lateral, short superior suture, and weighed to allow for appropriate cosmetic result. A specimen x-ray was taken of the right breast that showed the 3 clips in question. Hemostasis was achieved, and the wound was copiously irrigated with warm sterile saline. Skin flaps were inspected and a separate anterior margin was taken towards the upper outer aspect of the right skin flap, was sent separately to pathology as an anterior margin with the suture margin and biopsy cavity side. At this point, Dr. Herrera became the primary surgeon to perform the subpectoral implant reconstruction with acellular dermal matrix. The acellular dermal matrix will be sutured into the inferolateral aspect of the pectoralis major muscle to allow for the direct implant reconstruction. Drains will be placed around the implant, brought through separate stab incisions on the lateral skin flap and sutured into place using 3-0 nylon suture. All wounds will be closed by plastic surgery. All sponge, needle counts were correct at this point in the case, and the patient was hemodynamically stable. The patient will be extubated at the end of the case and brought to the post anesthesia care unit and will be admitted postoperatively for pain and wound management. Exparel 30 mL was injected into the right chest wall and muscle for postoperative pain control. FRANCESCA AGARWAL M.D. [id number]
--- NOTE | 2019-11-02 08:20 | OP ---
DATE OF OPERATION: 10/30/2019 SURGEON: Francesca Herrera MD PREOPERATIVE DIAGNOSIS: Right acquired chest wall deformity status post right mastectomy for breast cancer. POSTOPERATIVE DIAGNOSIS: Right acquired chest wall deformity status post right mastectomy for breast cancer. OPERATIVE PROCEDURE: 1. Right immediate breast reconstruction utilizing immediate insertion of silicone breast implant. 2. Insertion of acellular dermal matrix for breast reconstruction. OPERATIVE INDICATION: This is a 68-year-old white female who was brought to the operating room by Dr. Francesca Agarwal for a right mastectomy. The patient elected to undergo a mastectomy and have immediate breast reconstruction with insertion of a silicone breast implant. The risks and benefits, surgical versus nonsurgical alternatives as well as the material complications of the procedure were described to the patient on multiple occasions including today again in the holding area with Dr. Agarwal in attendance. The options were for tissue expansion or direct implant reconstruction. The patient agreed to the planned procedure. All questions were asked and answered. OPERATIVE PROCEDURE IN DETAIL: Patient was taken to the operating room by Dr. Francesca Agarwal and the mastectomy portion of the operation will be dictated under separate cover. Upon completion of the mastectomy, the wounds were copiously irrigated on the right chest wall. A visor mastectomy skin flap was carried out by Dr. Agarwal removing the nipple complex and the lower pole of the breast. At this point copious irrigation and hemostasis again obtained on the chest wall itself. SPY intraoperative angiogram was carried out by injecting 5 mL of isocyanine green dye into the intravascular system and then performing angiographic images which revealed good blood flow to the skin and breast area after the mastectomy. At this point a subpectoral dissection was begun by in the lower pole of the breast. Using electrocautery and the lighted retractor direct elevation of the pectoralis muscle superiorly from the 2nd rib, medial to the sternal fibers down to the inframammary fold was carried out. A large 1 mm sheath of Cortiva acellular dermal matrix was placed into the field which was then rehydrated in a sterile fashion with triple-antibiotic solution on the back table. This was then sutured to the pectoralis major muscle along the free border of the muscle from medial out to the lateral portion down to the chest wall laterally to define the lateral fold and then a second suture begun on the medial side. Once this was in place, an implant was chosen. The mastectomy specimen weighed approximately 825 g of tissue. This was replaced with a 620 mL Sientra smooth round high profile style 107 cohesive gel implant. This was placed into the subpectoral space and then the material was brought down over and sutured to the inframammary fold from both sides. This was tied in the middle inferiorly and full coverage of the device was seen. The visor skin flap was then brought down into its new anatomic position at the inframammary fold and sutured in 3 layers using 2-0 Vicryl suture on the deep tissue, 3-0 PDS in a deep dermal fashion and 4-0 Biosyn in a running subcuticular fashion. Two round Isra drains were brought out through separate stab wounds laterally and all wounds were closed with Dermabond and Steri-Strips. The patient tolerated the procedure well. She was awakened, extubated and transferred to the recovery room in a surgical bra. FRANCESCA HERRERA M.D. [id number]
--- NOTE | 2019-11-04 16:59 | PATH ---
Surgical Pathology Report Patient Name: PENNIE CRUZ Med. Rec. #: [id number] /Age/Gender: 1950 (Age: 68) / F Account: [id number] Location: [facility] MED-SURG Taken: 10/30/2019 Received: 10/30/2019 Reported: 11/04/2019 Physicians: Messi Agarwal M.D. Specimen(s) Received A: RIGHT AXILLARY SENTINEL NODE#1 (FS) B: RIGHT AXILLARY SENTINEL NODE#2 (FS) C: RIGHT AXILLARY SENTINEL NODE #3 (FS) D: RIGHT AXILLARY NON -SENTINEL NODE E: RIGHT BREAST ANTERIOR MARGIN F: RIGHT BREAST MASTECTOMY Clinical History Right ILC multifocal Intraoperative Consult Diagnosis A. Right axillary sentinel node #1, frozen section: One negative lymph node. B. Right axillary sentinel node #2, frozen section: One negative lymph node. C. Right axillary sentinel node #3, frozen section: One negative lymph node. Jeramie Rowell10/30/19 Final Diagnosis A. LYMPH NODE, RIGHT AXILLARY SENTINEL #1, EXCISION (FS): ONE LYMPH NODE, NEGATIVE FOR METASTATIC CARCINOMA (0/1). B. LYMPH NODE, RIGHT AXILLARY SENTINEL #2, EXCISION (FS): ONE LYMPH NODE, NEGATIVE FOR METASTATIC CARCINOMA (0/1). C. LYMPH NODE, RIGHT AXILLARY SENTINEL #3, EXCISION (FS): ONE LYMPH NODE, NEGATIVE FOR METASTATIC CARCINOMA (0/1). D. LYMPH NODE, RIGHT AXILLARY NON-SENTINEL, EXCISION (FS): ONE LYMPH NODE, NEGATIVE FOR METASTATIC CARCINOMA (0/1). E. BREAST, RIGHT, ANTERIOR MARGIN, EXCISION: BENIGN FIBROADIPOSE TISSUE. F. BREAST, RIGHT, TOTAL MASTECTOMY: TWO FOCI OF INVASIVE LOBULAR CARCINOMA, CLASSICAL TYPE (TUBULE SCORE: 3/3, NUCLEAR GRADE: 2/3, MITOTIC SCORE: 1/3, TOTAL SCORE: 6/9; SVITLANA GRADE 2), PRESENT IN THE UPPER OUTER QUADRANT (UOQ). (SEE NOTE) THE FOCI OF INVASIVE CARCINOMA MEASURE 1.5 CM AND 0.5 CM IN GREATEST DIMENSION, MICROSCOPICALLY. DUCTAL CARCINOMA IN SITU (DCIS), PAPILLARY, MICROPAPILLARY AND CRIBRIFORM TYPE, INTERMEDIATE NUCLEAR GRADE, PRESENT PREDOMINANTLY IN THE UOQ, WITH FEW FOCI IN THE UPPER INNER QUADRANT (UIQ) AND LOWER INNER QUADRANT (LIQ). EXTENSIVE LOBULAR CARCINOMA IN SITU (LCIS), CLASSICAL TYPE. SURGICAL MARGINS ARE UNINVOLVED BY INVASIVE CARCINOMA AND DCIS; INVASIVE CARCINOMA IS AT 6 MM FROM THE CLOSEST (ANTERIOR) MARGIN AND DCIS IS AT 1.5 CM FROM THE CLOSEST (ANTERIOR) MARGIN. SEE SPECIMEN E FOR FINAL ANTERIOR MARGIN. NIPPLE AND SKIN ARE UNINVOLVED BY INVASIVE CARCINOMA AND DCIS. NO LYMPHOVASCULAR INVASION IS IDENTIFIED. PRIOR BIOPSY SITE CHANGES ARE PRESENT. REMAINING BREAST TISSUE SHOWS FLAT EPITHELIAL ATYPIA (FEA) AND FIBROCYSTIC CHANGES. PATHOLOGIC STAGE (pTNM): pT1c (m) pN0. SEE ALSO INVASIVE CARCINOMA CASE SUMMARY BELOW. Note: The carcinoma is negative for E-cadherin (performed at [facility]), which supports lobular phenotype. Comments Breast Invasive Carcinoma: Surgical Pathology Case Summary (Based on AJCC TNM 8 th edition) Procedure _X_ Total mastectomy (including nipple-sparing and skin-sparing mastectomy) Specimen Laterality _X_ Right Tumor Size _X_ Greatest dimension of largest invasive focus >1 mm (millimeters): 15 mm Histologic Type _X_ Invasive lobular carcinoma Histologic Grade ([place] Histologic Score) Glandular (Acinar)/Tubular Differentiation _X_ Score 3 (<10% of tumor area forming glandular/tubular structures) Nuclear Pleomorphism _X_ Score 2 Mitotic Rate _X_ Score 1 Overall Grade _X_ Grade 2 (scores of 6 or 7) Tumor Focality _X_ Multiple foci of invasive carcinoma Number of foci: 2 Sizes of individual foci: 15 mm, 5 mm Ductal Carcinoma In Situ (DCIS) _X_ DCIS is present in specimen _X_ Negative for extensive intraductal component (EIC) Tumor Extension Skin _X_ Skin is present and uninvolved Nipple _X_ DCIS does not involve the nipple epidermis Skeletal Muscle _X_ No skeletal muscle is present Margins Invasive Carcinoma Margins _X_ Uninvolved by invasive carcinoma Distance from closest margin (millimeters): 6 mm from anterior margin in mastectomy specimen (F); final anterior margin (E) is negative for carcinoma DCIS Margins _X_ Uninvolved by DCIS Distance from closest margin (millimeters): 15 mm from anterior margin in mastectomy specimen (F); final anterior margin (E) is negative for DCIS Regional Lymph Nodes _X_ Uninvolved by tumor cells Number of Lymph Nodes Examined:4 Number of [place] Nodes Examined: 3 Treatment Effect in the Breast _X_ No known presurgical therapy Treatment Effect in the Lymph Nodes _X_ No lymph node metastases and no fibrous scarring or histiocytic aggregates in the nodes. Lymphovascular Invasion _X_ Not identified Pathologic Stage Classification (pTNM, AJCC 8th Edition) Primary Tumor (Invasive Carcinoma) (pT) _X_ pT1c (m): Tumor >10 mm but =20 mm in greatest dimension Regional Lymph Nodes (pN) Category (pN) _X_ pN0: No regional lymph node metastasis identified or ITCs only Biomarker Studies Results of ER and PA studies performed on this specimen (block F5) at [facility] are as follows: ER (clone [id number] mouse monoclonal antibody by [employer]): _X_ Positive: > 95 % nuclear staining with strong intensity PgR (clone16 mouse monoclonal antibody by [employer]): _X_ Positive: ~90 % nuclear staining with strong intensity Results of Her2 (IHC) & Ki-67 studies performed on this specimen (block F5) at [place], [place] ([id number]) are as follows: Her2 IHC (EP3 from [employer], formerly known as [id number], using [employer] Polymer Refine detection kit): 1+ (Negative) Ki67: ~15% (low proliferative index) Positive and negative controls (internal if applicable) show appropriate results. Formalin fixation and cold ischemic times are within current ASCO/CAP recommendations for ER, PgR and Her2 testing. Electronically Signed Farzana Cooley M.D. Gross Description A. Received fresh for frozen section evaluation, labeled "right axillary sentinel node #1" is a 1.5 x 1 x 0.3 cm with attached adipose tissue. Frozen section is performed on the lymph node. The frozen section residue is entirely submitted in one cassette. B. Received fresh for frozen section evaluation, labeled "right axillary sentinel node #2" is a 0.5 x 0.3 x 0.2 cm with attached adipose tissue. Frozen section is performed on the lymph node. The frozen section residue is entirely submitted in one cassette. C. Received fresh for frozen section evaluation, labeled "right axillary sentinel node #3" is a 0.8 x 0.6 x 0.3 cm with attached adipose tissue. Frozen section is performed on the lymph node. The frozen section residue is entirely submitted in one cassette. D. Received in formalin labeled "right axillary non-sentinel node," is a 1.0 x 0.5 x 0.5 cm hayes lymph node with attached adipose tissue. The specimen is bisected and entirely submitted in one cassette. E. Received in formalin labeled "right breast anterior margin," is a 3.5 x 2.0 x 0.7 cm portion of fibroadipose tissue with a suture marking the biopsy cavity side, per the surgeon. The new margin is inked blue and the specimen is serially sectioned. The specimen is entirely submitted in 3 cassettes. F. Received in formalin, labeled "right mastectomy," is a 781 gram, 21.0 x 20.0 x 5.5 cm. right mastectomy specimen with a short suture marking the superior aspect and a long suture marking the lateral aspect of the specimen, per the surgeon. The anterior surface displays a 20.0 x 10.5 cm hayes, elliptical portion of skin with a 1.1 cm in diameter nipple. The deep margin is inked black and the anterior soft tissue margin is inked blue. The specimen is serially sectioned from lateral to medial. Sectioning reveals a 1.5 x 1.0 x 1.0 cm hayes, indurated, ill-defined mass containing a granger metallic biopsy clip. The mass is in the upper outer quadrant (UOQ), 0.6 cm from the anterior soft tissue margin. There is an additional 0.7 x 0.6 x 0.5 cm hayes, indurated, ill-defined mass, also in the UOQ. The second mass is approximately 5 cm supero-medial to the first mass. The mass is 0.6 cm from the anterior soft tissue margin. The remaining breast parenchyma displays abundant dense, white, focally firm fibrous tissue. Inspector Brake Lining sections are submitted in 19 cassettes as follows: 1-serially sectioned nipple; 2-subareolar shave; 3-6-larger UOQ mass from area of clip with anterior soft tissue margin; 7-9-smaller UOQ mass with anterior soft tissue margin; 07-13-hdchitdrbp UOQ; 12-13-lower outer quadrant; 14-15-upper inner quadrant; 16-17-lower inner quadrant; 18-skin; 19-deep margin. Time to formalin fixation: 44 minutes Total formalin fixation time: Approximately 29 hours. AE/10/30/2019 ebram/10/30/2019
== END 2019-10-31 13:30 | disposition home or self-care (01) ==
LOC: FASUSAT 12:29 → FM/S 12:29 → FASUSAT 10-31 14:21
PROVIDERS: ATTEND Surgery Surgical Oncology
PROC: 0HRT0JZ Replacement of Right Breast with Synthetic Substitute, Open Approach (ICD-10-PCS; principal; 2019-10-30 11:11)
PROC: 0HBT0ZZ Excision of Right Breast, Open Approach (ICD-10-PCS; 2019-10-30 11:11)
DX: C50.811 Malignant neoplasm of overlapping sites of right female breast (principal); Z17.0 Estrogen receptor positive status [ER+]; I10 Essential (primary) hypertension; M95.4 Acquired deformity of chest and rib
CPT/HCPCS: 36415; 76098-TC-FY; 78195-TC; 85027; 88307-TC; 88331-TC; 88342-TC; 94760; A9541; J0131; J1644